=== PATIENT | female | born 1990 | race Two or more races ===

== ENCOUNTER 2018-04-10 22:42 | Emergency (ER) | payer OTHER ==
[~2018-04-10] VITALS: Ht 162.6 cm; Wt 54.5 kg
[2018-04-11 01:15] VITALS: BP 125/71
[2018-04-11] MEDS ORDERED: IBUPROFEN 400 MG TABLET PO ONE (01:30)
== END 2018-04-11 01:33 | disposition home or self-care (01) ==
LOC: EMS 22:43
DX: S00.33XA Contusion of nose, initial encounter (principal); S20.211A Contusion of right front wall of thorax, initial encounter; M54.2 Cervicalgia; Y04.0XXA Assault by unarmed brawl or fight, initial encounter; Y93.89 Activity, other specified; Y92.89 Other specified places as the place of occurrence of the external cause; Y99.8 Other external cause status
CPT/HCPCS: 70450; 71100; 72125; 99283; 99284